=== PATIENT | male | born 1965 | race Caucasian/White ===

== ENCOUNTER 2022-11-30 16:01 | Outpatient (RCR) | payer BC ==
[~2022-11-30 16:01] MED LIST: AMLODIPINE PO; HYDROCHLOROTHIA25 MG PO; LISINOPRIL10 MG PO; LOVASTATIN PO; METOPROLOL PO
== END 2022-12-29 ==
LOC: PT 16:01
PROVIDERS: ATTEND Specialist
DX: M17.12 Unilateral primary osteoarthritis, left knee (principal)